=== PATIENT | female | born 1955 | race Caucasian/White ===

== ENCOUNTER 2017-11-18 11:14 | Emergency (ER) | payer MEDICARE ==
[~2017-11-18] VITALS: Ht 162.6 cm; Wt 90.7 kg
[~2017-11-18 11:14] MED LIST: Keflex500 MG PO; Zofran Odt8 MG SL
[2017-11-18] MEDS ORDERED: NAPR220 PO (11:26)
[2017-11-18] MEDS ORDERED: DICL25ER PO (11:52)
== END 2017-11-18 12:02 | disposition home or self-care (01) ==
LOC: ER 11:14
DX: G89.29 Other chronic pain (principal); M54.5 Low back pain; F17.200 Nicotine dependence, unspecified, uncomplicated; Z86.19 Personal history of other infectious and parasitic diseases
CPT/HCPCS: 96372; 99283; J1885

== ENCOUNTER 2018-02-12 02:58 | Emergency (ER) | payer MEDICARE ==
[~2018-02-12] VITALS: Ht 167.6 cm; Wt 113.4 kg
[~2018-02-12 02:58] MED LIST changes: +DICL25ER PO; +NAPR220 PO
[2018-02-12] MEDS ORDERED: GABA100 (03:10)
[2018-02-12] MEDS ORDERED: Cyclobenzaprine5 MG PO (05:00)
[2018-02-12] MEDS ORDERED: IBUP600 PO (05:00)
== END 2018-02-12 06:27 | disposition home or self-care (01) ==
LOC: ER 02:58
DX: M54.5 Low back pain (principal); G89.29 Other chronic pain; F17.210 Nicotine dependence, cigarettes, uncomplicated
CPT/HCPCS: 72100; 99283